=== PATIENT | female | born 1995 | race Caucasian/White ===

== ENCOUNTER 2020-12-27 11:04 | Emergency (ER) | payer MEDICAID ==
[~2020-12-27] VITALS: Ht 160 cm; Wt 53.0 kg
[2020-12-27] MEDS ORDERED: IV NORMAL SALINE 1,000ML 1,000 ML IV ONE (12:30)
--- NOTE | 2020-12-27 12:30 | PHYS DOC ---
Past History Additional Past Medical Histor: patient reports that she has not taken her mental health 2 years (GONSALO MACEDO) Past Surgical History: No Surgical History (GONSALO MACEDO) Alcohol Use: None (GONSALO MACEDO) General Adult EDM: Chief Complaint: GI PROBLEM HPI: HPI: Patient is a 25 year old female A5 who presents with abdominal pain, bowel gas and diarrhea that began this morning. Patient reports seeing "dark red" bl ood in her stool today. She states that for the past few days she had been constipated and straining to defecate, which was followed today by loose stools. Patient reports her pain started in the left lower quadrant, migrated to central abdominal and is now epigastric. Patient reports history of frequent UTIs. She reports that her urine was darker than normal today, but denies dysuria and hematuria. Patient reports she is trying to get . Her last menstrual period was 12/09/2020. Patient is currently homeless and living in a senior care with her boyfriend and young child. Her other 2 children live with her mother out of town. Patient has no other complaints at this time. (GONSALO MACEDO) Review of Systems: Review of Systems: Constitutional: Denies fever or chills Respiratory: Denies cough or shortness of breath Cardiovascular: Denies chest pain or edema GI: See HPI : See HPI Musculoskeletal: Denies back pain or joint pain Integument: Denies rash or other skin lesions Neurologic: Denies headache, focal weakness or sensory changes (GONSALO MACEDO) Physical Exam: PE: Constitutional: Well developed, well nourished, no acute distress, non-toxic appearance. Cardiovascular: Heart rate regular rhythm, no murmur. Lungs & Thorax: Bilateral breath sounds clear to auscultation. Abdomen: Bowel sounds normal, soft, no tenderness, no masses, no pulsatile masses. Digital rectal: No gross blood per rectum, no external hemorrhoids or fissures appreciated, sphincter tone intact, internal hemorrhoid palpated 6:00. Skin: Warm, dry, no erythema, no rash. Back: No step-offs, no tenderness, no CVA tenderness. (GONSALO MACEDO) Current Patient Data: Labs: Laboratory Tests Test 12/27/20 12:46 12/27/20 12:55 12/27/20 14:19 Urine Collection Type Unknown Urine Color Yellow Urine Clarity Clear Urine pH 7.5 Urine Specific [place] 1.020 Urine Protein Neg (NEG-TRACE) Urine Glucose (UA) Neg mg/dL (NEG) Urine Ketones (Stick) Neg mg/dL (NEG) Urine Blood Neg (NEG) Urine Nitrite Neg (NEG) Urine Bilirubin Neg (NEG) Urine Urobilinogen Dipstick 0.2 mg/dL (0.2 mg/dL) Urine Leukocyte Esterase Neg (NEG) Urine RBC Occ /HPF (0-2) Urine WBC Occ /HPF (0-4) Urine Squamous Epithelial Cells Many /LPF Urine Bacteria 0 /HPF (0-FEW) Urine Mucus Slight /LPF Urine Test Negative (NEG) White Blood Count 7.8 x10^3/uL (4.0-11.0) Red Blood Count 4.37 x10^6/uL (3.50-5.40) Hemoglobin 13.6 g/dL (12.0-15.5) Hematocrit 40.8 % (36.0-47.0) Mean Corpuscular Volume 93 fL (79-100) Mean Corpuscular Hemoglobin 31 pg (25-35) Mean Corpuscular Hemoglobin Concent 34 g/dL (31-37) Red Cell Distribution Width 13.8 % (11.5-14.5) Platelet Count 218 x10^3/uL (140-400) Neutrophils (%) (Auto) 55 % (31-73) Lymphocytes (%) (Auto) 31 % (24-48) Monocytes (%) (Auto) 8 % (0-9) Eosinophils (%) (Auto) 5 % (0-3) Basophils (%) (Auto) 1 % (0-3) Neutrophils # (Auto) 4.3 x10^3uL (1.8-7.7) Lymphocytes # (Auto) 2.4 x10^3/uL (1.0-4.8) Monocytes # (Auto) 0.6 x10^3/uL (0.0-1.1) Eosinophils # (Auto) 0.4 x10^3/uL (0.0-0.7) Basophils # (Auto) 0.1 x10^3/uL (0.0-0.2) Sodium Level 138 mmol/L (136-145) Potassium Level 3.7 mmol/L (3.5-5.1) Chloride Level 104 mmol/L (98-107) Carbon Dioxide Level 26 mmol/L (21-32) Anion Gap 8 (6-14) Blood Urea Nitrogen 14 mg/dL (7-20) Creatinine 0.7 mg/dL (0.6-1.0) Estimated GFR (Cockcroft-Gault) 100.4 BUN/Creatinine Ratio 20 (6-20) Glucose Level 92 mg/dL (70-99) Calcium Level 9.0 mg/dL (8.5-10.1) Total Bilirubin 0.1 mg/dL (0.2-1.0) Aspartate Amino Transf (AST/SGOT) 16 U/L (15-37) Alanine Aminotransferase (ALT/SGPT) 26 U/L (14-59) Alkaline Phosphatase 56 U/L (46-116) Total Protein 7.1 g/dL (6.4-8.2) Albumin 3.7 g/dL (3.4-5.0) Albumin/Globulin Ratio 1.1 (1.0-1.7) Lipase 112 U/L (73-393) Stool Occult Blood Negative (NEG) Vital Signs: Vital Signs Date Time Temp Pulse Resp B/P (MAP) Pulse Ox O2 Delivery O2 Flow Rate FiO2 12/27/20 12:13 98.2 98 18 140/75 (96) 100 Room Air (GONSALO MACEDO) Heart Score: C/O Chest Pain: No (GONSALO MACEDO) Course & Med Decision Making: Course & Med Decision Making Pertinent Labs and Imaging studies reviewed. (See chart for details) Patient presentation consistent with possible constipation leading to injury, which caused patient's bloody stool. Work-up will include lab work to make sure patient has no electrolyte abnormalities or anemia. Patient's work-up today is largely unremarkable. 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 Patient is instructed to eat a bland diet until her abdominal pain and diarrhea resolved. She may return to the emergency department if her symptoms worsen or she develop new symptoms. Patient understands and agrees to discharge plan. (GONSALO MACEDO) Course & Med Decision Making Did not see or evaluate patient. Agree with PAs work-up and disposition per note. (JEFFREY BARNARD MD) Dragon Disclaimer: Dragon Disclaimer: This electronic medical record was generated, in whole or in part, using a voice recognition dictation system. (GONSALO MACEDO) Departure Departure: Impression: Primary Impression: Internal hemorrhoid Additional Impression: History of bloody stools Disposition: HOME / SELF CARE / HOMELESS Condition: STABLE Referrals: PCP,NO (PCP) Patient Instructions: Hemorrhoids, [id number] Additional Instructions: As discussed, your history of constipation may have caused internal hemorrhoid to bleed. Should you have increased bleeding or any new symptoms, please return to the emergency department. GONSALO MACEDO Dec 27, 2020 12:30 JEFFREY BARNARD MD Dec 31, 2020 18:08
[2020-12-27 13:17] LABS: BASO # 0.1 x10^3/uL (0.0-0.2); BASO % 1 % (0-3); EOS # 0.4 x10^3/uL (0.0-0.7); EOS % 5 % (0-3); HEMATOCRIT 40.8 % (36.0-47.0); HEMOGLOBIN 13.6 g/dL (12.0-15.5); LYMPH # 2.4 x10^3/uL (1.0-4.8); LYMPH % 31 % (24-48); MEAN CORPUSCULAR HEMOGLOBIN 31 pg (25-35); MEAN CORPUSCULAR HGB CONC 34 g/dL (31-37); MEAN CORPUSCULAR VOLUME 93 fL (79-100); MONO # 0.6 x10^3/uL (0.0-1.1); MONO % 8 % (0-9); NEUT # 4.3 x10^3uL (1.8-7.7); NEUT % 55 % (31-73); PLATELET COUNT 218 x10^3/uL (140-400); RED BLOOD COUNT 4.37 x10^6/uL (3.50-5.40); RED CELL DISTRIBUTION WIDTH 13.8 % (11.5-14.5); WHITE BLOOD COUNT 7.8 x10^3/uL (4.0-11.0)
[2020-12-27 13:21] LABS: CREATININE 0.7 mg/dL (0.6-1.0); GFR 100.4; POTASSIUM 3.7 mmol/L (3.5-5.1)
[2020-12-27 13:27] LABS: ALBUMIN 3.7 g/dL (3.4-5.0); ALBUMIN/GLOBULIN RATIO 1.1 (1.0-1.7); TOTAL BILIRUBIN 0.1 mg/dL (0.2-1.0); TOTAL PROTEIN 7.1 g/dL (6.4-8.2)
[2020-12-27 13:39] LABS: BACTERIA,URINE 0 /HPF (0-FEW); BILIRUBIN,URINE NEG (NEG); CLARITY,URINE CLEAR; COLOR,URINE YELLOW; GLUCOSE,URINE NEG (NEG); NITRITE,URINE NEG (NEG); RBC,URINE OCC /HPF (0-2); SQUAMOUS EPITHELIAL CELL,UR MANY /LPF; UROBILINOGEN,URINE 0.2 mg/dL (0.2 mg/dL); WBC,URINE OCC /HPF (0-4)
[2020-12-27 14:00] LABS: U PREG PATIENT NEGATIVE (NEG)
[2020-12-27 15:00] VITALS: BP 114/64
[2020-12-27 15:05] LABS: FECAL OB PT NEGATIVE (NEG)
== END 2020-12-27 15:05 | disposition home or self-care (01) ==
LOC: ER 11:04
DX: K64.8 Other hemorrhoids (principal)
CPT/HCPCS: 36415; 80053; 81001; 81025; 82274; 83690; 85025; 96360; 99283; J7030